=== PATIENT | male | born 1965 | race Caucasian/White ===

== ENCOUNTER 2023-09-20 18:16 | Emergency (ER) | payer SELFPAY ==
[~2023-09-20] VITALS: Ht 160 cm; Wt 66.0 kg
[2023-09-20 18:20] VITALS: O2SAT 98
[2023-09-20] MEDS ORDERED: LEVETIRACETAM 1000MG PREMIX 100 ML IV ONE (19:15)
[2023-09-20 21:00] LABS: BASOPHILS % 0.3 % (0.0-2.0); EOSINOPHILS % 0.2 % (0.0-5.0); HEMOGLOBIN. 17.1 g/dL (14.0-18.0); LYMPHOCYTES % 11.7 % (20.0-50.0); MEAN CORPUSCULAR HEMOGLOBIN 31.7 pg (28.0-32.0); MEAN CORPUSCULAR HGB CONC 34.8 g/dL (31.0-37.0); MEAN CORPUSCULAR VOLUME 91.2 fL (80.0-94.0); MONOCYTES % 6.2 % (2.0-8.0); NEUTROPHILS % 81.6 % (40.0-76.0); PLATELET 228 x1000/uL (130-400); RED BLOOD CELL COUNT 5.38 mill/uL (4.7-6.1); WHITE BLOOD COUNT 14.1 x1000/uL (4.5-11.0)
[2023-09-20 21:02] LABS: DIFFERENTIAL COMMENT 1
[2023-09-20 21:13] LABS: ALANINE AMINOTRANSFERASE 13 IU/L (10-49); ALBUMIN 4.2 g/dL (3.2-4.8); ASPARTATE AMINOTRANSFERASE 16 IU/L (<34); BILIRUBIN TOTAL 0.5 mg/dL (0.1-1.0); CALCIUM 9.4 mg/dL (8.7-10.4); CARBON DIOXIDE 28 mEq/L (21-32); CHLORIDE 102 mEq/L (98-107); CREATININE 0.6 mg/dL (0.6-1.3); GLUCOSE 167 mg/dL (70-105); PROTEIN TOTAL 7.5 g/dL (6.0-8.3); SODIUM 137 mEq/L (136-145); UREA NITROGEN BLOOD 6 mg/dL (9-23)
[2023-09-20 21:14] LABS: ETHANOL BLOOD < 10 mg/dL (<10)
[2023-09-20 21:15] LABS: LACTIC ACID 3.1 mmol/L (0.4-2.0)
[2023-09-21 00:24] VITALS: BP 121/78; PULSE 108; RESP 20; TEMP 98.3
== END 2023-09-21 00:28 | disposition home or self-care (01) ==
LOC: ER 18:16
DX: R56.9 Unspecified convulsions (principal); E11.9 Type 2 diabetes mellitus without complications; I10 Essential (primary) hypertension; Z86.73 Personal history of transient ischemic attack (TIA), and cerebral infarction without residual deficits
CPT/HCPCS: 80053; 80320; 83605; 85025; 36415; 93005; 96365; 96366; 99284; J1953; G0480